=== PATIENT | male | born 1970 | race Two or more races ===

== ENCOUNTER 2017-12-17 16:07 | Emergency (ER) | payer SELFPAY ==
[~2017-12-17] VITALS: Ht 177.8 cm; Wt 120.2 kg
[2017-12-17 17:24] VITALS: BP 104/64
== END 2017-12-17 18:23 | disposition home or self-care (01) ==
LOC: EDBD 16:12 → ER 16:12
DX: S62.334A Displaced fracture of neck of fourth metacarpal bone, right hand, initial encounter for closed fracture (principal); I10 Essential (primary) hypertension; W22.8XXA Striking against or struck by other objects, initial encounter; Y93.89 Activity, other specified; Y99.8 Other external cause status; Y92.89 Other specified places as the place of occurrence of the external cause
CPT/HCPCS: 29125; 73130

== ENCOUNTER 2019-01-25 17:23 | Emergency (ER) | payer MEDICAID ==
[~2019-01-25] VITALS: Ht 180.3 cm; Wt 113.4 kg
[2019-01-25] MEDS ORDERED: LORazepam 2MG/ML-1ML VIAL ONE (19:06)
[2019-01-25] MEDS ORDERED: LORazepam 2MG/ML-1ML VIAL IV ONE (19:15)
[2019-01-25 19:31] LABS: Basophils # (auto) 0 uL; Basophils % (auto) 0.7 % (0.0-2.0); Eosinophils # (auto) 0 uL; Eosinophils % (auto) 0.1 % (0.0-7.0); Hemoglobin 14.6 g/dL (13.5-17.5); Lymphocytes # (auto) 0.6 uL; Lymphocytes % (auto) 9.8 % (10.0-50.0); Mean Corpuscular Hemoglobin 33.7 pg (28.0-32.0); Mean Corpuscular Hgb Conc. 34.7 g/dL (32.0-36.0); Mean Corpuscular Volume 97.1 fL (80.0-100.0); Monocytes # (auto) 0.7 uL; Monocytes % (auto) 12.1 % (0.0-12.0); Neutrophils # (auto) 4.5 uL; Neutrophils % (auto) 77.3 % (37.0-80.0); Platelet Count (auto) 70 10^3/uL (140-450); Red Blood Cells 4.33 10^6/uL (4.5-5.90); Red Cell Distribution Width 12.9 % (11.8-14.3); White Blood Cell 5.8 10^3/uL (4.4-10.8)
[2019-01-25 19:36] LABS: Albumin 3.5 g/dL (3.4-5.0); Calcium 8.8 mg/dL (8.5-10.1); Potassium 3.6 mmol/L (3.5-5.1)
[2019-01-25 19:40] LABS: BUN/Creatinine Ratio 7.6; Bilirubin, Total 1.8 mg/dL (0.2-1.0); Total Protein 7.7 g/dL (6.4-8.2)
[2019-01-25 21:57] LABS: Amphetamine Screen, Urine NEGATIVE (NEGATIVE); Barbiturate Scree,Urine NEGATIVE (NEGATIVE); Benzodiazephine Screen, Urine NEGATIVE (NEGATIVE); Cannabinoid Screen, Urine NEGATIVE (NEGATIVE); Cocaine Screen, Urine NEGATIVE (NEGATIVE); Opiate Scree,Urine NEGATIVE (NEGATIVE); Phencyclidine Screen, Urine NEGATIVE (NEGATIVE)
[2019-01-25] MEDS ORDERED: LEVETIRACETAM INJ 1,000 MG in D5W 5% 100 ML IV ONE (23:15)
[2019-01-25] MEDS ORDERED: LEVETIRACETAM 500 MG/5ML INJ IV ONE (23:15)
[2019-01-26 00:20] VITALS: BP 131/92
== END 2019-01-26 00:42 | disposition home or self-care (01) ==
LOC: EDBD 17:23 → ER 17:26
DX: S01.01XA Laceration without foreign body of scalp, initial encounter (principal); G40.909 Epilepsy, unspecified, not intractable, without status epilepticus; I10 Essential (primary) hypertension; F17.210 Nicotine dependence, cigarettes, uncomplicated; X58.XXXA Exposure to other specified factors, initial encounter; Y93.89 Activity, other specified; Y92.89 Other specified places as the place of occurrence of the external cause; Y99.8 Other external cause status
CPT/HCPCS: 12001; 36415; 70450; 80053; 80307; 85025; 93005; 96365; 96375; 99284; J1953; J2060; J7060